=== PATIENT | male | born 1965 | race Caucasian/White ===

== ENCOUNTER 2018-06-21 15:31 | Emergency (ER) | payer OTHER ==
[2018-06-21] MEDS ORDERED: NS 1,000 ML IV ONE (15:49)
[2018-06-21 16:13] LABS: PLATELET COUNT 188 10^3/uL (150-400)
[2018-06-21] MEDS ORDERED: IOPAMIDOL (ISOVUE-300) 100 ML BTL ONE (16:28)
--- NOTE | 2018-06-21 17:07 | EDPHY ---
H & P Time Seen by Provider: 06/21/18 15:47 HPI/ROS: CHIEF COMPLAINT: Abdominal pain HISTORY OF PRESENT ILLNESS: 52 year old male presents reporting upwards of 2 years of left upper quadrant pain, especially when he lays down to sleep. No fevers, vomiting, blood in urine, urinary compaints, diarrhea, or significant worseing or change in pain characteristics; just want to see what might be causing this pain and so presented for an evaluation. He has had an upper GI and a colonoscope to evaluate this pain with no clear cause identified. Does not have any clear relationship to food. Has not had any unexpected weight loss or night sweats. REVIEW OF SYSTEMS: A comprehensive 10 system review of systems was reviewed and is otherwise negative aside from elements mentioned in the history of present illness. PAST MEDICAL HISTORY: Denies SOCIAL HISTORY: No alcohol use. VITAL SIGNS: see nurse's notes. GENERAL: Well-developed, well-nourished, in no acute distress. HEENT: Normal, no discharge or icterus, moist mucous membranes. Neck: supple, FROM. LUNGS: Clear to auscultation bilaterally, no wheezes, rhonchi or rales. CARDIAC: Regular rate and rhythm, no rubs, murmurs or gallops. ABDOMEN: Soft, mild luq tenderness, no guardiing or rebound. No flank tenderness on palpation. Spleen not palpable. No fluid wave. BACK: No CVA tenderness. No vertebral tenderness. EXTREMITIES: No edema, FROM. NEURO: Alert and oriented, grossly nonfocal. SKIN: Warm and dry, no rash. Smoking Status: Never smoked Constitutional: Initial Vital Signs Temperature (C) 36.7 C 06/21/18 15:34 Heart Rate 66 06/21/18 15:34 Respiratory Rate 18 06/21/18 15:34 Blood Pressure 131/81 H 06/21/18 15:34 O2 Sat (%) 95 06/21/18 15:34 O2 Delivery Mode Room Air Allergies/Adverse Reactions: No Known Allergies Allergy (Unverified 06/21/18 15:34) Home Medications: Medication Instructions Recorded Dicyclomine [Bentyl 20 MG (*)] 20 mg PO QID #30 tab 06/21/18 Medical Decision Making - Diagnostics Imaging Results: CT scan abd pelvis: Impression: No anatomic abnormalities to explain left upper quadrant intermittent pain. Findings and recommendations discussed with Claudia Díaz M.D., at 4:49 p.m. on June 21, 2018. Dictated By: Meg Miles MD Imaging: Discussed imaging studies w/ [facility] Radiologist ED Course/Re-evaluation: Iv established. Labs: normal WBC, H and H, LFTs, lipase. Ct scan only shows redundant loops of bowel at splenic flexure. Perhaps gas or stool might collect in that area and cause crampy pain. Discussed results with patient. Advised to followup with [facility] and to consider bentyl for spasmotic complaints Differential Diagnosis: After obtaining the patients history and performing an examination, differential diagnosis considered included but was not limited to gastritis, pancreatitis, kidney stones, urinary tract infections, splenic infection, occult tumor, and other causes. - Data Points Laboratory Results: Laboratory Results 06/21/18 16:00 06/21/18 16:00 Medications Given: Discontinued Medications Dicyclomine HCl (Bentyl) 20 mg PO EDNOW ONE Stop: 06/21/18 17:11 Last Admin: 06/21/18 17:18 Dose: 20 mg Sodium Chloride (Ns) 1,000 mls @ 0 mls/hr IV EDNOW ONE; Wide Open PRN Reason: Protocol Stop: 06/21/18 15:50 Last Admin: 06/21/18 16:17 Dose: 1,000 mls Departure - Departure Disposition: Home, Routine, Self-Care Clinical Impression: Abdominal pain Condition: Good Instructions: Abdominal Pain (ED), Chronic Abdominal Pain (ED) Additional Instructions: Your CT scan demonstrates some excessive bowel in your left upper quadrant. It is possible that this area becomes painful due to spasm of the bowel, gas pains, or even constipation. I recommend he begin taking Bentyl 20 mg by mouth 4 times a day. I recommend follow up with Gastroenterology. I recommend that you try to sort out if food or alcohol changes the pain. Referrals: NONE *PRIMARY CARE P,. [Primary Care Provider] - As per Instructions Syd Wheatley MD, FACG [Medical Doctor] - As per Instructions Prescriptions: Dicyclomine [Bentyl 20 MG (*)] 20 mg PO QID #30 tab
[2018-06-21] MEDS ORDERED: DICYCLOMINE 10 MG CAP PO ONE (17:10)
[2018-06-21 17:22] VITALS: BP 134/98
== END 2018-06-21 17:29 | disposition home or self-care (01) ==
DX: R10.12 Left upper quadrant pain (principal); E86.9 Volume depletion, unspecified
CPT/HCPCS: Q9967